=== PATIENT | female | born 1965 | race Two or more races ===

== ENCOUNTER 2017-04-15 09:25 | Inpatient (IN) | payer OTHER ==
[2017-04-15] VITALS (10 sets, daily range): BP systolic 87–112; BP diastolic 52–69
[~2017-04-15] VITALS: Ht 154.9 cm; Wt 65.3 kg
[~2017-04-15 09:25] MED LIST: ceFAZolin sod 2 GM in D5W 110 ML IVPB ONE
[2017-04-15] MEDS ORDERED: Thrombin 5000 units TOPIC ONE (10:11)
[2017-04-15] MEDS ORDERED: EPINEPHrine 1mg/1ml Amp ONE (10:12)
[2017-04-15] MEDS ORDERED: Bupivacaine 0.5% Inj 30 ml vial INJ ONE (10:12)
[2017-04-15] MEDS ORDERED: Vancomycin 1gm inj IVPB ONE (10:12)
[2017-04-15] MEDS ORDERED: Bacitracin 50000 Units Vial ONE (10:12)
[2017-04-15] MEDS ORDERED: TYLENOL325 MG ORAL (10:39)
[2017-04-15] MEDS ORDERED: MULTIVITAMINS1 EAC2 ORAL (10:39)
[2017-04-15] MEDS ORDERED: Succinylcholine 20mg/ml 10ml vial ONE (11:30)
[2017-04-15] MEDS ORDERED: Midazolam 2mg/2ml Inj ONE (11:30)
[2017-04-15] MEDS ORDERED: fentaNYL 100 mcg/2 mL IV ONE (11:30)
[2017-04-15] MEDS ORDERED: Morphine Sulfate 10mg/ml Inj ONE (11:30)
[2017-04-15] MEDS ORDERED: Sterile Water Irrig 1000ml IRRIG ONE (11:30)
[2017-04-15] MEDS ORDERED: Neostigmine 1mg/ml 10ml Inj ONE (11:30)
[2017-04-15] MEDS ORDERED: Sodium Chloride 10ml vial INJ ONE (11:30)
[2017-04-15] MEDS ORDERED: LR 1000ml ONE (11:30)
[2017-04-15] MEDS ORDERED: Ketorolac 30mg Inj ONE (11:30)
[2017-04-15] MEDS ORDERED: Glycopyrrolate 0.2mg/ml 1ml Vial ONE (11:30)
[2017-04-15] MEDS ORDERED: Propofol 1,000mg/ 100ml btl IV ONE (11:30)
[2017-04-15] MEDS ORDERED: NS Irrig 1000ml ONE (11:30)
[2017-04-15] MEDS ORDERED: Zemuron 50mg/5ml Inj IV ONE (11:30)
--- NOTE | 2017-04-15 12:02 | Pre-Procedure Note/Attestation ---
Pre-Procedure Note/Attestation Complete Prior to Procedure Procedure Narrative: tlif l5s1 with decompression Attestation I attest that I discussed the nature of the procedure; its benefits; risks and complications; and alternatives (and the risks and benefits of such alternatives ), prior to the procedure, with the patient (or the patient's legal fundraising sale representative). I attest that, if there was a reasonable possibility of needing a blood transfusion, the patient (or the patient's legal fundraising sale representative) was given the [facility] standardized written summary, pursuant to the [place] Blood Safety Act ([place] Health and Safety Code # 1645, as amended). I attest that I re-evaluated the patient just prior to the surgery and that there has been no change in the patient's H&P, except as documented below: FRANCISCO SANDOVAL Apr 15, 2017 12:02
[2017-04-15] MEDS ORDERED: LR 1000ml 1,000 ML IVLG SCH (13:14)
--- NOTE | 2017-04-15 13:14 | Anethesia Preoperative Eval ---
Anesthesia Pre-op PMH/ROS General Date of Evaluation: Apr 15, 2017 Time of Evaluation: 11:38 Anesthesiologist: Ju ASA Score: ASA 2 Mallampati Score Class I : Soft palate, uvula, fauces, pillars visible Class II: Soft palate, uvula, fauces visible Class III: Soft palate, base of uvula visible Class IV: Only hard plate visible Mallampati Classification: Class II Surgeon: [place] Diagnosis: Lumbar radiculopathy Surgical Procedure: L5-S1 laminotomy with decompression and interbody fusion Anesthesia History: none Family History: no anesthesia problems Allergies: Coded Allergies: No Known Allergies (Unverified , 04/15/17) Medications: see eMAR Past Medical History Cardiovascular: Denies: HTN, CAD, TN, valve dz, arrhythmia, other Pulmonary: Denies: asthma, COPD, MIKE, other Gastrointestinal/Genitourinary: Reports: GERD - mild, Denies: CRI, ESRD, other Neurologic/Psychiatric: Reports: other - chronic pain, Denies: dementia, CVA, depression/anxiety, TIA Endocrine: Denies: DM, hypothyroidism, steroids, other HEENT: Denies: cataract (L), cataract (R), glaucoma, [place] (L), [place] (R), other Hematology/Immune: Denies: anemia, DVT, bleeding disorder, other Musculoskeletal/Integumentary: Denies: OA, RA, DJD, DDD, edema, other PMH Narrative: as above PSxH Narrative: none Anesthesia Pre-op Phys. Exam Physician Exam Last Vital Signs Date Time Temp Pulse Resp B/P (MAP) Pulse Ox O2 Delivery O2 Flow Rate FiO2 04/15/17 10:24 98.3 65 18 106/54 95 Room Air Constitutional: NAD Neurologic: CN 2-12 intact Cardiovascular: RRR, no M/R/G Respiratory: CTA Gastrointestinal: S/NT/ND Airway Exam Mallampati Score: Class II MO: full Neck: flexible ROM: full Teeth: missing Dentures: upper, lower Anesthesia Pre-op A/P Labs see chart Studies Pre-op Studies: EKG - SR, CXR - WNL Risk Assessment & Plan Assessment: ASA 2 Plan: GA with ETT prone position neuromonitoring Status Change Before Surgery: No Pre-Antibiotics Drug: Ancef 1gr. Given Within 1 Hr of Incision: Yes Time Given: 12:18 GARCÍA LY M.D. Apr 15, 2017 13:14
[2017-04-15] MEDS ORDERED: Midazolam 2mg/2ml Inj IVP PRN (13:15)
[2017-04-15] MEDS ORDERED: Hydromorphone 0.5mg/0.5ml inj IVP PRN (13:15)
[2017-04-15] MEDS ORDERED: Meperidine 50mg/ml Inj(FOR RIGORS ONLY) IV PRN ×2 (13:15)
[2017-04-15] MEDS ORDERED: Ketorolac 30mg Inj IV PRN (13:15)
[2017-04-15] MEDS ORDERED: DiphenhydrAMINE 50mg/ml Inj IVP PRN (13:15)
[2017-04-15] MEDS ORDERED: Acetaminophen (Non formulary) 100 ML IV ONE (13:30)
--- NOTE | 2017-04-15 16:10 | Brief Operative Note ---
Immediate Post Operative Note Operative Note Pre-op Diagnosis: spondylolisthesis, stenois, lumbar radic l5s1 Post-op Diagnosis: same as pre-op Findings: consistent w/pre-op dx studies Surgeon: milton Associate Software Developer: keyla Anesthesiologist: tian Anesthesia: general Specimen: yes Complications: none Condition: stable Fluids: 1200cc Estimated Blood Loss: minimal - 100cc Drains: hemovac Implant(s) used?: Yes FRANCISCO SANDOVAL Apr 15, 2017 16:10
[2017-04-15] MEDS ORDERED: Naloxone 0.4mg/ml Inj IVP PRN (16:15)
--- NOTE | 2017-04-15 16:39 | Diagnostic Imaging Report ---
Indication: Pain in lower extremities, intraoperative imaging Technique: Intraoperative images Comparison: none Findings: Initial image demonstrates localized nodule posterior to what is presumably the L5 vertebral body. Subsequent images document posterior fusion at L5-S1, with placement of a disc spacer Impression: Intraoperative imaging, as described
--- NOTE | 2017-04-15 16:40 | Immediate Post-Op Evaluation ---
Immediate Post-Op Evalulation Immediate Post-Op Evalulation Procedure: L5-S1 laminotomy with discectomy and interbody fusion Date of Evaluation: Apr 15, 2017 Time of Evaluation: 16:39 IV Fluids: 1300 Blood Products: none Estimated Blood Loss: 100 Urinary Output: 150 Blood Pressure Systolic: 96 Blood Pressure Diastolic: 52 Pulse Rate: 84 Respiratory Rate: 20 O2 Sat by Pulse Oximetry: 99 Temperature (Fahrenheit): 98.3 Pain Score (1-10): 2 Nausea: No Vomiting: No Complications none Patient Status: reacts, patent, extubated, none Hydration Status: adequate GARCÍA LY M.D. Apr 15, 2017 16:40
[2017-04-15] MEDS ORDERED: HYDROcodone/Acetamin 7.5/325 tab ORAL PRN (18:00)
[2017-04-15] MEDS: D5 1/2NS 1,000 ML IV SCH (18:18)
[2017-04-15] MEDS: Docusate 100mg cap ORAL SCH (18:25)
[2017-04-15] MEDS ORDERED: ceFAZolin sod 1 GM in NS 55 ML IV SCH (20:00)
[2017-04-16 00:34] VITALS: BP 100/64
[2017-04-16] MEDS: D5 1/2NS 1,000 ML IV SCH (04:02)
[2017-04-16 04:30] VITALS: BP 94/56
--- NOTE | 2017-04-16 04:46 | Operative Note - Dictated ---
DATE OF OPERATION: 04/15/2017 PREOPERATIVE DIAGNOSIS: L5-S1 pars defect with fracture with anterolisthesis, disc bulge stenosis, and lower extremity radiculopathy. POSTOPERATIVE DIAGNOSIS: L5-S1 pars defect with fracture with anterolisthesis, disc bulge stenosis, and lower extremity radiculopathy. PROCEDURE PERFORMED: 1. Laminectomy L5-S1 with foraminotomy. 2. Pedicle screw instrumentation at L5-S1. 3. Posterolateral arthrodesis at L5-S1 with local autograft and allograft. 4. Posterior interbody fusion at L5-S1 with placement of PEEK interbody spacer. 5. Placement of PEEK interbody spacer with autograft and allograft. 6. Reduction of spondylolisthesis at L5-S1. 7. Intraoperative use of microscope. 8. Intraoperative use of fluoroscopy. 9. SSEP and EMG neural monitoring. SURGEON: Izaiah Berumen M.D. BEAUTY OPERATOR APPRENTICE: Dr. Zacarias Boland. ANESTHESIA: General endotracheal anesthesia. ANESTHESIOLOGIST: Gurwinder Dodd M.D. FINDINGS: L5 pars defect with fracture, spondylolisthesis, and stenosis for the exiting L5 nerve root and traversing S1 nerve root. EBL: 100 mL. FLUIDS: 1200 mL of crystalloid. INDICATIONS: This is a pleasant female, who has failed nonoperative treatment and options for above treatment was given. Risks, alternatives, and benefits were discussed with the patient at length. Risks include, but are not limited to, anesthesia complications including and medical complications including liver, kidney, and cardiopulmonary deficits, bleeding infection, dural tear, CSF leak, nerve root injury, pars fracture instability, reherniation, as well as continued symptoms. The patient understood and wished to proceed. DESCRIPTION OF OPERATION: The patient was brought to the operating room supine on the stretcher. Subsequently, appropriate IV lines were placed. A 2 g of Ancef was administered. Anesthesia was induced and the patient was successfully intubated. Sequential compression devices were placed on to the bilateral lower extremities. The patient was gently turned over prone on the Alen frame table. All bony prominences were well padded and the abdomen was assured to lay freely. The L5-S1 interspace was positively identified via lateral fluoroscopy and an indelible marker was used to james the midline. The patient was prepped and draped in usual sterile fashion with alcohol, chlorhexidine scrub, ChloraPrep, and [place]an draping. At this point, an incision was made vertically over the midline. Superficial hemostasis was achieved. Dissection now was carried out to the L5-S1 interspace including the transverse processes and the mammillary process at L5 and the sacral ala and the L5-S1 facet joint. Retractors were set into place. A radiopaque marker was placed in the L5 pedicle and the L5-S1 level was positively identified. Attention now was diverted initially to doing the laminectomy with foraminotomy. A pars fracture was found bilaterally at L5 and instability at L5-S1 as well as the spondylolisthesis. With the use of a #3, #4, and #5 Kerrison punches as well as the rongeur, a Rea laminectomy was done and the whole lamina at L5-S1 was removed including a foraminotomy for the exiting L5 nerve roots. Once this was accomplished, a Fernando probe was used to investigate the L5-S1 foramina, which were completely patent at this point after the decompression as well as the lateral recess, which was patent. Now, an osteotomy of the left superior facet of S1 was accomplished with a high-speed drill and complete decompression of foramina entailed. With a [place] 4 and nerve root retractor, the neural elements were carefully medially retracted and a disc herniation at L5-S1 was found. With the use of a #11 blade, a box incision was made into the posterior anulus of L5-S1 and with disc preparation instrument including Fernando probe box curettes, as well as shaver instruments, a radical diskectomy at L5-S1 entailed. Endplate cartilage was removed. Endplate bone was well preserved. At this point, attention was diverted to the posterior interbody fusion. Allograft and autograft from the laminectomy were preserved and a trial from the U and [employer] System was placed. This was a lordotic 10 mm x 22 mm trial and this was done under fluoroscopic control. The trial was found to be fitting into the interspace well with excellent apposition against the endplate at L5-S1. At this point, a PEEK interbody device was chosen 10 mm x 22 mm in length, lordotic, and was packed with bone morphogenic protein as well as allograft [place] putty. Bone morphogenic protein was also carefully placed into the anterior interbody space. Now, the PEEK interbody spacer was gently tamped into place at L5-S1 under fluoroscopic control and was found to be in excellent position at L5-S1 by lateral and AP fluoroscopy. Once this was accomplished, attention was now diverted to placement of the pedicle screws. The pedicle screws were from the [employer] System. The mammillary processes at L5 and S1 were carefully drilled with a high-speed drill and with a lengthy pedicle probe. The center of the pedicles were found sequentially at L5 bilaterally and S1 bilaterally. Once this was done, a ball-tip probe was used to probe the center of the pedicles and pedicles were found to not have any breaches. Appropriate sized tap instruments were placed at L5 bilaterally and S1 bilaterally. A ball-tip probe again was used to investigate the pedicles and the pedicles were found to not have any breaches. Once this was accomplished, the following pedicle screws were placed. At L5 bilaterally 6.0 x 40 mm screws and at S1 bilaterally 7.0 x 40 mm screws and each screw had excellent purchase and was directed appropriately into the center of the pedicles at L5 and S1 bilaterally. Once this was accomplished, now attention was diverted to do stimulus evoked EMGs. The left L5 and S1 screws had conduction at 20 milliamps of current. The right S1 screw had conduction at 12 milliamps of current and right L5 screw had conduction at 7.5 milliamps of current. At this point, the right L5 screw was investigated with a dental probe and a Bolton probe and there was no cortical breaches. Nevertheless, the screw was removed and the center of the pedicle again was probed and investigated and again, there is no cortical breaches and the same screw was reimplanted at right L5. Please note, that the purchase remained excellent the second time the screw was placed and there was no loss of purchase and therefore the identical screw was opted to be placed. Now, attention was diverted to the reduction of the spondylolisthesis. Please note that reduction screws were placed at L5. Appropriate sized lordotic rods were placed at the [place] of the pedicle screws at L5-S1. First, the set screws were placed at S1 and were torqued towards appropriately. Next, the set screws were placed into the tulips of the reduction screws at L5 and sequentially each screw was used to reduce the spondylolisthesis at L5-S1 with posterior migration of the L5 vertebral body. Once this was done, the tulips of the reduction screws at L5 were snapped off appropriately and there was no cross threading of the set screws at L5 and S1. The set screws again were torqued appropriately with the appropriate torque wrench and now attention was diverted to the posterolateral fusion. Decortication of the transverse processes and sacral ala was done and a posterolateral arthrodesis was done with local autograft and E[place] putty. Once this was done, Valsalva 40 mmHg was done. There was no CSF leak. All sponge, needle, and instrument counts were correct. Copious triple antibiotic solution was used for irrigation and now attention was diverted to closure. A subfascial medium-sized Hemovac drain was placed. The dorsal lumbar fascia was closed with #1 Vicryl sutures in a watertight fashion. The subdermal and subcuticular layers were closed with 2-0 Vicryl. The skin was closed with Dermabond. Sterile dressing tape was placed. The patient was turned supine, extubated in stable condition, and was taken to the recovery room in stable condition, and found to be neurovascularly intact. The patient was admitted to the hospital for monitoring. Izaiah Berumen M.D. DR: SHANDA JOB#: [id number] CC: SWETA
[2017-04-16] MEDS: ceFAZolin sod 1 GM in NS 55 ML IV SCH ×4 (07:03→18:02)
[2017-04-16 07:49] LABS: HEMATOCRIT 32.2 % (37.0-47.0); HEMOGLOBIN 11.6 G/DL (12.0-16.0); MEAN CORPUSCULAR VOLUME 92 FL (80-99); PLATELET COUNT 170 K/UL (150-450); RED BLOOD COUNT 3.51 M/UL (4.20-5.40); RED CELL DISTRIBUTION WIDTH 11.8 % (11.6-14.8)
[2017-04-16 08:00] VITALS: BP 91/49
[2017-04-16] MEDS: Docusate 100mg cap ORAL SCH ×2 (08:55→17:14)
[2017-04-16] MEDS: Norco 5mg/325mg tab ORAL PRN ×2 (08:56→17:14)
--- NOTE | 2017-04-16 09:09 | 48 Hour Post Anesthesia Eval ---
Post Anesthesia Evaluation Procedure: L5-S1 laminotomy with discectomy and interbody fusion Date of Evaluation: Apr 16, 2017 Time of Evaluation: 09:07 Blood Pressure Systolic: 98 0: 56 Pulse Rate: 74 Respiratory Rate: 20 Temperature (Fahrenheit): 97.8 O2 Sat by Pulse Oximetry: 98 Airway: patent Nausea: No Vomiting: No Pain Intensity: 3 Hydration Status: adequate Cardiopulmonary Status: stable Mental Status/LOC: patient returned to baseline Follow-up Care/Observations: n/a Post-Anesthesia Complications: none Follow-up care needed: N/A GARCÍA LY M.D. Apr 16, 2017 09:09
[2017-04-16 12:00] VITALS: BP 96/50
[2017-04-16 16:00] VITALS: BP 112/65
[2017-04-16 20:33] VITALS: BP 97/60
[2017-04-16] MEDS: HYDROcodone/Acetamin 7.5/325 tab ORAL PRN (21:37)
[2017-04-17 00:40] VITALS: BP 86/56
[2017-04-17] MEDS: HYDROcodone/Acetamin 7.5/325 tab ORAL PRN ×2 (03:39→10:48)
[2017-04-17 04:00] VITALS: BP 89/53
[2017-04-17 07:35] LABS: BASOPHILS % (AUTO) 0.8 % (0.0-2.0); EOSINOPHILS % (AUTO) 1.3 % (0.0-3.0); HEMATOCRIT 33.6 % (37.0-47.0); HEMOGLOBIN 11.8 G/DL (12.0-16.0); LYMPHOCYTES % (AUTO) 10.5 % (20.0-45.0); MEAN CORPUSCULAR VOLUME 91 FL (80-99); MONOCYTES % (AUTO) 7.4 % (1.0-10.0); NEUTROPHILS % (AUTO) 80.1 % (45.0-75.0); PLATELET COUNT 179 K/UL (150-450); RED BLOOD COUNT 3.69 M/UL (4.20-5.40); WHITE BLOOD COUNT 6.9 K/UL (4.8-10.8)
[2017-04-17 08:00] VITALS: BP 92/60
[2017-04-17] MEDS: Docusate 100mg cap ORAL SCH (08:43)
--- NOTE | 2017-04-17 10:44 | General Progress Note ---
Progress Note Progress Note Doing well post op leg pain resolved walking the halls with walker mild lbp o) a and o times 3 amb well vitals stable h and h 11 and 33 5/5 motor in le calves soft and nt cr less than 2 secs a/p dc today with pain meds fu 7 days brace and walker wound care instructions given FRANCISCO SANDOVAL Apr 17, 2017 10:44
[2017-04-17 12:00] VITALS: BP 110/66
[2017-04-17] MEDS ORDERED: NORCO 5-325 TA1 EAC1 ORAL (14:10)
[2017-04-17] MEDS ORDERED: SOMA350 MG PO (14:12)
[2017-04-17] MEDS ORDERED: Tubing IV Secondary IV ONE (14:49)
[2017-04-17] MEDS ORDERED: D5 1/2NS 1000ml IV ONE (14:49)
--- NOTE | 2017-04-20 09:23 | Discharge Summary ---
Discharge Summary Hospital Course Date of Admission Apr 15, 2017 at 09:25 Date of Discharge Apr 17, 2017 at 14:50 Admitting Diagnosis L5-S1 pars defect with fracture with anterolisthesis, Disc bulge stenosis, Lower extremity radiculopathy. Reason for Hospitalization: elective surgery HPI Cheyenne Rodriguez is a 52 year old female who was admitted on Apr 15, 2017 at 09: 25 for Back Pain due to L5-S1 pars defect with fracture with anterolisthesis, Disc bulge stenosis, Lower extremity radiculopathy. Patient was admitted for elective surgery Procedures s/p 04/15/[address] Berumen 1. Laminectomy L5-S1 with foraminotomy. 2. Pedicle screw instrumentation at L5-S1. 3. Posterolateral arthrodesis at L5-S1 with local autograft and allograft. 4. Posterior interbody fusion at L5-S1 with placement of PEEK interbody spacer. 5. Placement of PEEK interbody spacer with autograft and allograft. 6. Reduction of spondylolisthesis at L5-S1. 7. Intraoperative use of microscope. 8. Intraoperative use of fluoroscopy. 9. SSEP and EMG neural monitoring. Hospital Course s/p surgery course of recovery uneventful leg pain resolved neurovascular intact pain management ambulated with walker with PT fall precautions dressing C/D/I tolerated diet voided cleared for dc by surgeon instructed on wound care walker and brace provided scrips for analgesics provided fup with surgeon as outpatient POSTOPERATIVE DIAGNOSIS: -L5-S1 pars defect with fracture with anterolisthesis, -Disc bulge stenosis, -Lower extremity radiculopathy. -s/p L5-S1 laminectomy with foraminotomy.discectomy and posterior interbody fusion L5-S1 Discharge Medications Continued Medications: Carisoprodol* (Soma*) 350 Mg Tablet 350 MG PO TID, #30 TAB Hydrocodone Bit/Acetaminophen 5-325* ([place] 5-325 Tablet*) 1 Each Tablet 1 TAB ORAL Q6HR PRN for For Pain, TAB Discharge Condition Upon Discharge: stable Discharge Disposition Patient was discharged to Home () Discharge Diagnoses: Discharge Instructions Discharge Instructions Special Instructions I have been assigned to complete a D/C Summary on this account. I was not involved in the patient management Allison Cowan NP ([place]) Apr 20, 2017 09:23
== END 2017-04-17 14:50 | disposition home or self-care (01) | DRG 460 ==
LOC: SDSOVERFLO 09:25 → 3E 17:45
DX: M43.17 Spondylolisthesis, lumbosacral region (principal); M48.07 Spinal stenosis, lumbosacral region; M54.17 Radiculopathy, lumbosacral region; V89.2XXS Person injured in unspecified motor-vehicle accident, traffic, sequela
CPT/HCPCS: 36415; 72020; 76001; 85007; 85025; 86850; 86900; 86901; 87081; 94003; 94150; J2250; J2405; J2710